=== PATIENT | male | born 2000 | race Caucasian/White ===

== ENCOUNTER 2024-06-04 15:46 | Emergency (ER) | payer SELFPAY ==
[~2024-06-04] VITALS: Ht 162.6 cm; Wt 73.0 kg
[2024-06-04 15:51] VITALS: O2SAT 100
[2024-06-04] MEDS: HYDROCODONE/ACETAMINOPHEN 5/325MG TABLET PO ONE (17:53)
[2024-06-04] MEDS ORDERED: CYCL10TA21 MT (19:03)
[2024-06-04] MEDS ORDERED: NAPR-1176 MT (19:03)
[2024-06-04 19:20] VITALS: BP 129/84; PULSE 70; RESP 18; TEMP 36.2; O2SAT 100
== END 2024-06-04 19:21 | disposition home or self-care (01) ==
LOC: ER 15:46
DX: S20.219A Contusion of unspecified front wall of thorax, initial encounter (principal); S70.02XA Contusion of left hip, initial encounter; S20.229A Contusion of unspecified back wall of thorax, initial encounter; W22.8XXA Striking against or struck by other objects, initial encounter; Y93.89 Activity, other specified; Y92.89 Other specified places as the place of occurrence of the external cause; Y99.8 Other external cause status
CPT/HCPCS: 71045; 72128; 72131; 73502; 99284

== ENCOUNTER 2025-03-03 15:11 | Emergency (ER) | payer SELFPAY ==
[~2025-03-03] VITALS: Ht 175.3 cm; Wt 75.0 kg
[~2025-03-03 15:11] MED LIST: CYCL10TA21 MT; NAPR-1176 MT
[2025-03-03 15:29] VITALS: O2SAT 98
[2025-03-03] MEDS: IBUPROFEN 600MG TABLET PO ONE (16:35)
[2025-03-03] MEDS: ACETAMINOPHEN 325MG TABLET PO ONE (16:36)
[2025-03-03] MEDS ORDERED: IBUP-2028 MT (17:12)
[2025-03-03] MEDS ORDERED: ACET-2708 MT (17:12)
[2025-03-03 18:07] VITALS: BP 120/82; PULSE 68; RESP 16; TEMP 36.6; O2SAT 100
== END 2025-03-03 18:09 | disposition home or self-care (01) ==
LOC: ER 15:11
DX: S93.401A Sprain of unspecified ligament of right ankle, initial encounter (principal); S90.31XA Contusion of right foot, initial encounter; Z98.890 Other specified postprocedural states; Z79.899 Other long term (current) drug therapy; X58.XXXA Exposure to other specified factors, initial encounter; Y93.89 Activity, other specified; Y92.89 Other specified places as the place of occurrence of the external cause; Y99.8 Other external cause status
CPT/HCPCS: 73610; 73630; 29515; 99284; A6449; Z7610